=== PATIENT | female | born 1980 | race African-American/Black ===

== ENCOUNTER 2025-06-06 14:42 | Emergency (ER) | payer MEDICARE, MEDICAID ==
[~2025-06-06] VITALS: Ht 162.6 cm; Wt 100.0 kg
[2025-06-06 14:45] VITALS: O2SAT 98
[2025-06-06] MEDS: PREDNISONE 20MG TABLET PO ONE (16:21)
[2025-06-06] MEDS: HYDROCODONE/ACETAMINOPHEN 5/325MG TABLET PO ONE (16:59)
[2025-06-06] MEDS: IPRATROPIUM/ALBUTEROL 0.5-3(2.5)MG/3ML NEB HHN ONE (17:15)
[2025-06-06] MEDS ORDERED: ALBU90AE INH (18:45)
[2025-06-06] MEDS ORDERED: T3 PO (18:45)
[2025-06-06] MEDS ORDERED: P50 MT (18:45)
[2025-06-06] MEDS ORDERED: IBUP-1525 MT (18:45)
[2025-06-06] MEDS ORDERED: AZIT250T12 MT (18:45)
[2025-06-06 19:50] VITALS: BP 150/98; PULSE 88; RESP 16; TEMP 36.8; O2SAT 98
== END 2025-06-06 19:50 | disposition home or self-care (01) ==
LOC: ER 14:42
DX: J40 Bronchitis, not specified as acute or chronic (principal); E11.9 Type 2 diabetes mellitus without complications; I10 Essential (primary) hypertension; F31.9 Bipolar disorder, unspecified; Z88.0 Allergy status to penicillin
CPT/HCPCS: 99283; 71045; 94640; J7512; 94070; 94664